=== PATIENT | female | born 1965 | race African-American/Black ===

== ENCOUNTER 2021-02-16 13:53 | Outpatient (CLI) | payer OTHER | END 2021-02-16 13:54 | disposition home or self-care (01) | LOC: NAV RAD 13:53 | PROVIDERS: ATTEND Family Medicine | DX: S39.011A Strain of muscle, fascia and tendon of abdomen, initial encounter (principal) | CPT/HCPCS: 72170 ==

== ENCOUNTER 2022-03-26 12:06 | Outpatient (CLI) | payer BC, OTHER | END 2022-03-26 12:07 | disposition home or self-care (01) | LOC: NAV RAD 12:06 | PROVIDERS: ATTEND Family Medicine | DX: M54.42 Lumbago with sciatica, left side (principal) | CPT/HCPCS: 72100 ==

== ENCOUNTER 2022-10-08 13:43 | Outpatient (CLI) | payer OTHER ==
[2022-10-08 14:14] LABS: #Basophils 0.1 thou/uL (0.0-0.2); #Eosinphils 0.1 thou/uL (0.0-0.7); #Lymphocytes 2.1 thou/uL (1.20-3.40); #Monocytes 0.4 thou/uL (0.11-0.59); #Neutrophils 2.6 thou/uL (1.40-6.50); %Basophils 1.8 % (0.0-1.0); %Eosinophils 2.4 % (0.0-10.0); %Lymphocytes 39.1 % (21.0-51.0); %Monocytes 7.4 % (0.0-10.0); %Neutrophils 49.3 % (42.0-75.0); Hemoglobin 11.8 g/dL (12.0-16.0); Mean Corpuscular HGB CONC 30.2 g/dL (32.0-36.0); Mean Corpuscular Volume 86.2 fl (78.0-98.0); Mean Platelet Volume 9.6 fL (7.4-10.4); Platelet Count 290 10x3/uL (130-400); RBC Distribution Width 13.7 % (11.5-14.5); Red Blood Cell (RBC) Count 4.55 mill/uL (4.20-5.40); White Blood Cell (WBC) Count 5.3 10x3/uL (4.8-10.8)
[2022-10-08 14:45] LABS: Follow-up Chemistry Comp? YES; Follow-up Coag Comp? YES; Follow-up Hematology Comp? YES; Follow-up Result - Chemistry REPORT FAXED; Follow-up Result - Coag REPORT FAXED; Follow-up Result - Hematology REPORT FAXED
[2022-10-09 07:21] LABS: Reference Lab Name LABCORP
[2022-10-09 07:22] LABS: Ref Lab Test Ordered PRO-BNP
== END 2022-10-08 13:44 | disposition home or self-care (01) ==
LOC: NAV LAB 13:43
PROVIDERS: ATTEND Family Medicine
DX: R60.0 Localized edema (principal)
CPT/HCPCS: 36415; 82550; 85025; 85379

== ENCOUNTER 2022-10-23 09:19 | Outpatient (CLI) | payer OTHER | END 2022-10-23 09:20 | disposition home or self-care (01) | LOC: NAV RAD 09:19 | PROVIDERS: ATTEND Nurse Practitioner Family | DX: M25.461 Effusion, right knee (principal); M17.11 Unilateral primary osteoarthritis, right knee ==